=== PATIENT | female | born 1970 | race African-American/Black ===

== ENCOUNTER → 2016-12-02 | Outpatient (CLI) | payer OTHER ==
[~2016-12-02] MED LIST: ASTEPRO; ASTEPRO137 MCG/0.; ATARAX PO; CLARITIN10 M3 PO; CLARITIN10 MG PO; HYDROCODON-ACE1 EAC5 PO; IBUPROFEN400 MG PO; IBUPROFEN600 MG PO; NASOCORT; PERCOCET5/325; PERCOCET5/325 PO; SERTRALINE HCL50 MG PO; TAMOXIFEN CITRA20 MG PO; ULTRAM PO; VOLTAREN75 MG PO; ZYRTEC PO; ZYRTEC10 M2 PO
--- NOTE | ~2016-12-02 | MY11 ---
[facility] A Service of [facility] RADIOLOGY TEXT RESULTS PATIENT: SAMMY PRECIADO LOCATION: [facility] : 68 UNIT #: [id number] AGE: [address]: Conchita Quesada MD SEX: F ORDER DR: [id number] [facility] [place], [place] [address] [id number] O MR#: [id number] Acc #: [id number] NAME: SAMMY PRECIADO : 1970 SEX: F STUDY DATE/TIME: 12/02/2016 7:47 UNIT: [facility] ROOM: STUDY DESCRIPTION: MY Mammogram Screening Dig Vazquez Attending Physician: Conchita Quesada M.D. Referring Physician: Conchita Quesada M.D. Ordering Physician: Conchita Quesada M.D. Primary Care Physician: Conchita Quesada M.D. MEDICAL IMAGING REPORT This report is preliminary unless electronic signature is present EXAM Bilateral digital screening mammogram with CAD COMPARISON November 27, 2015, November 21, 2014, November 07, 2013, March 22, 2013, November 22, 2012, July 08, 2011, June 24, 2011. INDICATION Breast cancer screening. 46-year-old asymptomatic female with a history of left breast cancer diagnosed in 2010 treated with lumpectomy, chemotherapy and radiation. Patient underwent reduction mammoplasty in 2002. Patient also reports a grandmother with premenopausal breast cancer. FINDINGS There are scattered fibroglandular densities. Stable postsurgical changes of the left breast. No suspicious findings in either breast. IMPRESSION No mammographic evidence of malignancy. Continued annual screening mammography and clinical breast exam recommended. BIRADS 2- Benign Finding Patients over the age of 40 are entered into a reminder system with target due date for the next mammogram. A result letter will also be sent to the patient. [facility] A Service of [facility] RADIOLOGY TEXT RESULTS PATIENT: SAMMY PRECIADO LOCATION: [facility] : 68 UNIT #: [id number] AGE: [address]: Conchita Quesada MD SEX: F ORDER DR: Dictated by... Marcos English M.D. THIS IS AN ELECTRONICALLY VERIFIED REPORT Marcos English M.D. at 12/04/2016 4:19 PM CARLOS/lu TD: 12/03/2016 09:49 JOB #: [id number] MEDICAL IMAGING REPORT Page 1 of 1 COPY
== END | disposition home or self-care (01) ==
LOC: CWCC 07:27
DX: Z12.31 Encounter for screening mammogram for malignant neoplasm of breast (principal); Z85.3 Personal history of malignant neoplasm of breast; Z98.890 Other specified postprocedural states; Z80.3 Family history of malignant neoplasm of breast
CPT/HCPCS: G0202

== ENCOUNTER 2017-01-20 01:34 | Emergency (ER) | payer OTHER ==
[~2017-01-20 01:34] MED LIST changes: -ATARAX PO; -HYDROCODON-ACE1 EAC5 PO
[2017-01-20] MEDS ORDERED: ATARAX PO (01:45)
[2017-01-20] MEDS ORDERED: HYDROCODON-ACE1 EAC5 PO (01:46)
[2017-01-20 02:37] LABS: BASOPHIL# 0.1 X10e3 (0-0.3); BASOPHIL% 1.2 % (0-2.5); EOSINOPHIL# 0.1 X10e3 (0-0.7); EOSINOPHIL% 3.2 % (0.0-7.0); HEMATOCRIT 38.6 % (35.0-45.0); HEMOGLOBIN 13.1 gm/dL (12.0-16.0); LYMPHOCYTE# 2.1 X10e3 (1.0-3.5); LYMPHOCYTE% 48.1 % (17.0-45.0); MEAN CELL VOLUME 96.2 FL (83-96); MEAN CORPUSCULAR HEMOGLOBIN 32.8 PG (28-34); MEAN CORPUSCULAR HGB CONC 34.1 g/dL (30-36); MEAN PLATELET VOLUME 8.5 FL (6.5-11.5); MONOCYTE# 0.4 X10e3 (0-1.0); MONOCYTE% 8.8 % (3.0-12.0); NEUTROPHIL# 1.7 X10e3 (1.5-7.1); NEUTROPHIL% 38.7 % (40-75); PLATELET COUNT 168 X10e3 (140-420); RED BLOOD COUNT 4.01 X10e (3.90-5.30); RED CELL DISTRIBUTION WIDTH 12.3 % (11.0-15.5); WHITE BLOOD COUNT 4.3 X10e3 (4.0-10.5)
[2017-01-20 02:40] LABS: DIFF IND NO
[2017-01-20 02:54] LABS: ALBUMIN SERUM 4.1 g/dL (3.5-5.0); ALKALINE PHOSPHATASE 37 U/L (32-92); ALT (SGPT) 23 U/L (10-40); AST (SGOT) 27 U/L (10-42); BILIRUBIN, DIRECT <0.1 mg/dL (0.0-0.2); BILIRUBIN,INDIRECT 0.3 mg/dL (0.0-0.9); BILIRUBIN,TOTAL 0.4 mg/dL (0.2-2.0); BLOOD UREA NITROGEN 21 mg/dL (9-23); CARBON DIOXIDE 23 mmol/L (22-31); CHLORIDE 107 mmol/L (100-111); CREATININE SERUM 0.7 mg/dL (0.6-1.4); GLOM FILT RATE Estimated 119.6 mL/min (>60); GLUCOSE FASTING 92 mg/dL (70-110); POTASSIUM 3.3 mmol/L (3.5-5.1); PROTEIN TOTAL SERUM 6.9 g/dL (6.0-8.3); SODIUM 139 mmol/L (135-145)
== END 2017-01-20 04:01 | disposition home or self-care (01) ==
LOC: SED 01:34
PROVIDERS: Emergency Medicine
DX: T78.3XXA Angioneurotic edema, initial encounter (principal); Z98.51 Tubal ligation status; Z90.710 Acquired absence of both cervix and uterus; Z98.890 Other specified postprocedural states; Z79.899 Other long term (current) drug therapy
CPT/HCPCS: 36415; 80048; 80076; 85025; 96374; 96375; 99283; J1200; J2930